=== PATIENT | female | born 1970 | race Caucasian/White ===

== ENCOUNTER 2024-12-19 09:42 | Emergency (ER) | payer BC, SELFPAY ==
--- NOTE | ~2024-12-19 | XR_ITS ---
Examination: XR foot LT min 3V Clinical History: trauma, pain after fall, pain to top of foot Comparison: None Technique: 4 views left foot Findings/impression: 1. Nondisplaced fracture proximal first metatarsal. 2. Probable chronic subtle fracture distal second metatarsal, but superimposed or acute process not excluded and correlation with point tenderness. 3. Osteopenia. 4. Calcaneal enthesophyte at plantar fascia insertion site. Reviewed, dictated and finalized at location R[facility] [employer]
[2024-12-19 10:11] VITALS: BP 154/88; PULSE 65; RESP 18; O2SAT 100
--- NOTE | 2024-12-19 10:21 | ED_ITS ---
HPI - General Adult General Chief complaint: Extremity Injury, Lower Stated complaint: fall yesterday-left foot swelling Time Seen by Provider: 12/19/24 09:55 History of Present Illness HPI narrative: 54-year-old female presenting to the emergency department for evaluation for left foot pain. Patient reports yesterday she was walking and tripped over an extension cord causing her to hop and then ultimately injured her left foot. Patient denies any ankle pain knee pain. Patient denies any other pain or injury from the fall. Patient denies striking head denies any loss of consciousness. Patient states he attempted to rest the foot overnight but states she is still having pain in the foot that is worsened with ambulation. Patient does have some swelling of the affected foot. patient is neurovascularly intact. Related Data Allergies Allergy/AdvReac Type Severity Reaction Status Date / Time No Known Allergies Allergy Verified 12/19/24 10:17 Review of Systems Review of Systems: All systems reviewed & are unremarkable except as noted in HPI and below Exam Narrative: APPEARANCE: Well appearing, no pain, no distress, well-nourished. HEAD: normocephalic, atraumatic. EYES: PERRLA/EOMI, conjunctivae clear. NOSE: Normal no drainage EARS:TMS clear with good light reflex. THROAT: Pharynx clear, no exudate. NECK: Supple. No adenopathy, no masses. RESPIRATORY: Airway patent, respirations nonlabored. Clear to auscultation bilaterally, no rales, rhonchi, wheezing. CARDIOVASCULAR: Regular rate and rhythm without murmurs rubs or gallops. ABDOMINAL: Soft, nontender, nondistended, normal bowel sounds MUSCULOSKELETAL: Left foot tenderness to palpation with edema of the left foot, no ankle or calf tenderness to palpation, neurovascularly intact on left foot NEURO: Alert. Cranial nerves II through XII intact. Good gait. Good coordination SKIN: Warm, dry. Normal Color Course Vital Signs Vital signs: Vital Signs Pulse Rate 65 12/19/24 10:11 Respiratory Rate 18 12/19/24 10:11 Blood Pressure 154/88 H 12/19/24 10:11 Pulse Oximetry 100 12/19/24 10:11 Pulse Rate 59 L 12/19/24 12:13 Respiratory Rate 18 12/19/24 12:13 Blood Pressure 152/88 H 12/19/24 12:13 Pulse Oximetry 99 12/19/24 12:13 Medical Decision Making MDM Narrative Medical decision making narrative: 54-year-old female present to the emergency department for evaluation for left foot pain. X-ray does show a fracture of the 1st proximal metatarsal and a suspected fracture of the 2nd. Patient was placed in a short-leg posterior splint and provided crutches for nonweightbearing. Patient was provided outpatient follow-up with Orthopedics. All questions concerns were addressed. Differential Diagnosis Differential Diagnosis: Foot fracture, ankle fracture, knee fracture, foot contusion Vital Signs Vital Signs: Vital Signs Pulse Rate 65 12/19/24 10:11 Respiratory Rate 18 12/19/24 10:11 Blood Pressure 154/88 H 12/19/24 10:11 Pulse Oximetry 100 12/19/24 10:11 Pulse Rate 59 L 12/19/24 12:13 Respiratory Rate 18 12/19/24 12:13 Blood Pressure 152/88 H 12/19/24 12:13 Pulse Oximetry 99 12/19/24 12:13 Imaging Data Radiologist's impression: Findings/impression: 1. Nondisplaced fracture proximal first metatarsal. 2. Probable chronic subtle fracture distal second metatarsal, but superimposed or acute process not excluded and correlation with point tenderness. 3. Osteopenia. 4. Calcaneal enthesophyte at plantar fascia insertion site. Discharge Plan Discharge Clinical Impression: Metatarsal bone fracture Patient Disposition: Home Condition: Stable Instructions: Antibiotic Form, Crutch Instructions (ED), Foot Fracture in Adults (ED), Splint Care (ED) Additional Instructions: Splint care as directed. the crutches for nonweightbearing. Tylenol and ibuprofen for pain control. Have close outpatient follow-up with Orthopedics. If you have any worsening symptoms then please call or return to the emergency department. Patient Language: [place]ian Follow-up/Referrals: Renee,Eric Michael MD [Primary Care Provider, Unknown] Solo Márquez MD [Physician, Orthopedics]
[2024-12-19 12:13] VITALS: BP 152/88; PULSE 59; RESP 18; O2SAT 99
== END 2024-12-19 12:14 | disposition home or self-care (01) ==
PROVIDERS: Emergency Provider Emergency Medicine; PCP Family Medicine
DX: S92.315A Nondisplaced fracture of first metatarsal bone, left foot, initial encounter for closed fracture (principal); M85.872 Other specified disorders of bone density and structure, left ankle and foot; M77.32 Calcaneal spur, left foot; W22.8XXA Striking against or struck by other objects, initial encounter
CPT/HCPCS: 29515; 73630; 99284